=== PATIENT | female | born 2000 | race Two or more races ===

== ENCOUNTER 2024-10-31 11:31 | Inpatient (IN) | payer MEDICAID, SELFPAY ==
[2024-10-31] VITALS (75 sets, daily range): BP systolic 99–181; BP diastolic 58–128; PULSE 48–104; RESP 16–100; TEMP 36.8–37.5; O2SAT 91–100; BMI 30.8
[2024-10-31] MEDS: RINGERS LACTATED 1000 ML 1,000 ML 100 ML IV (12:18)
[2024-10-31 12:47] LABS: Basophils % (Auto) 0 % (0-2.5); Eosinophils # (Auto) 0.1 Thou/mm3 (0.0-0.5); Eosinophils % (Auto) 1 % (0-10); Hemoglobin 11.6 g/dL (12.0-16.0); Immature Granulocytes % (Auto) 1 % (0-0); Immature Granulocytes Auto 0.05 Thou/mm3 (0.00-0.00); Lymphocytes # (Auto) 1.9 Thou/mm3 (1.0-4.8); Lymphocytes % (Auto) 19 % (10-50); Mean Corpuscular HGB Conc 33.1 g/dl (31.0-37.0); Mean Corpuscular Hemoglobin 27.6 pg (25.0-35.0); Mean Corpuscular Volume 83 fL (80-100); Monocytes # (Auto) 0.7 Thou/mm3 (0.0-0.8); Monocytes % (Auto) 7 % (0-12); Neutrophils # (Auto) 7.2 Thou/mm3 (1.8-7.7); Neutrophils % (Auto) 72 % (37-80); Nucleated Red Blood Cell % 0 /100 WBC (0); Platelet Count 235 Thou/mm3 (140-440); RDW Standard Deviation 47.5 fL (36.4-46.3); Red Blood Count 4.21 Miln/mm3 (4.00-5.20); White Blood Count 9.9 Thou/mm3 (3.6-11.0)
[2024-10-31 13:40] LABS: Syphilis Nonreactive (Nonreactive)
[2024-10-31] MEDS: OXYTOCIN in NS 20 units 20 UNIT/1,000 ML BAG 125 UNIT IV (16:37)
[2024-10-31] MEDS: MISOPROSTOL 200 mCg TABLET 800 MCG PR (16:38)
[2024-10-31] MEDS: OXYTOCIN INJ 10 UNIT/ML VIAL IM (16:38)
--- NOTE | 2024-10-31 17:01 | PD.LDHP ---
Documentation for date of: 10/31/24 OB Labor/Induct. HPI History of Present Illness Chief complaint: labor : 3 Para: 1 Term pregnancies: 1 pregnancies: 1 Living children: 2 History of Abortions: Spontaneous and Elective: 0 History of Vaginal deliveries: 2 History of sections: No History of : No Date of last menstrual period: 01/29/24 JASMEET: 11/02/24 Gestational Age (weeks): 39 Gestational Age (days): 5 Gestational age based on last menstrual period: 39 History of present illness: 24-year-old 3 para 2 admit to labor and delivery with complaints of contractions since 10:00 in the morning. Last period was February 05, 2024. This gives a due date November 11, 2024. Patient has a history of irregular menses. Her first ultrasound was in February on the and patient was 6 weeks 5 and is changed due date November 02, 2024. Then patient had anatomy scan in June did also confirm dates. Denies social habits. Denies surgery. Eyes chronic illness. Patient had a abnormal 1 hour GTT but 3-hour was normal. Patient is O+, antibody screen negative, RPR nonreactive, rubella immune, hepatitis B negative, hep C negative, HIV negative, GC and Chlamydia were negative. She had negative NIPT and carrier screens were negative. GBS negative. Patient had negative drug screen. History of Present Dating criteria: LMP confirmed by 1st trimester US Adequate Care: Yes Ultrasounds: normal 1st trimester US and normal mid trimester US Obstetrical complications: none Medical complications: none Labs Labs: Negative: Hepatitis B, HIV, Chlamydia, Gonorrhea and Group Beta Strep Review of Systems Review of Systems Systems Reviewed: All systems reviewed, normal except as documented Past Medical History Surgical History SURGICAL: Negative Section Meds Home Medications and Allergies Home Medications ?Medication ?Instructions ?Recorded ?Confirmed ?Type vit no.95-ferrous 1 tab PO QDAY 10/31/24 10/31/24 History fumarate 28 mg-folic acid 800 mcg tablet () Allergies Allergy/AdvReac Type Severity Reaction Status Date / Time No Known Allergies Allergy Verified 10/31/24 12:07 OB Exam Physical Exam Vital signs: Temp Pulse Resp BP Pulse Ox 98.5 F 63 18 125/70 99 10/31/24 11:35 10/31/24 16:52 10/31/24 11:34 10/31/24 16:52 10/31/24 16:27 Narrative: Alert and oriented. Normal heart rate and rhythm. Lungs clear no wheezes. Gravid abdomen. Gynecoid pelvis. Estimated weight 7 and half pounds. Vaginal exam on admission was 80%, 4-5, -2. Vertex. Bag water intact. heart rate category 1 with accelerations and moderate variability and regular contractions Routine Cardiovascular Exam Cardiovascular: Present RRR Routine Abdominal Exam Abdominal: Present soft Detailed Labor and Delivery Exam Dilation (cm): 4-5 Effacement (%): 80 Cervix position: mid station: -2 Consistency: soft Presentation: Vertex Cervical ripeness score: 8 Membranes: intact Baseline heart rate: 115 monitor accelerations: 15x15 monitor decelerations: None director long term care variability: Moderate (11-25) Contraction frequency (min): 3-4 Contraction duration (sec): 40 Tachysystole: No Contraction intensity: Moderate OB Results Labs 10/31/24 11:48 Labs: Short CBC 10/31/24 Range/Units 11:48 WBC 9.9 (3.6-11.0) Thou/mm3 Hgb 11.6 L (12.0-16.0) g/dL Hct 35.0 L (36.0-46.0) % Plt Count 235 (140-440) Thou/mm3 OB Assessment & Plan Assessment and Plan (1) Normal labor and delivery: Status: Acute Additional Plan Induction method: none Plan: anticipate NVD and consult MD quezada
--- NOTE | 2024-10-31 17:14 | OBDSUM_ITS ---
Data (Rachel) Data Hx Section: No : 3 Para: 2 Term: 2 : 0 : 0 Delivery Data (Rachel) Labor Data Stimulated/Augmented: No Induction: No ROM Date: 10/31/24 ROM Time: 14:21 Rupture Type: SROM Amniotic Fluid: Clear Delivery Data EDC: 11/02/24 EDC calculated by:: LMP/early US confirmation Labor Onset Stage 1 Date: 10/31/24 Labor Onset Stage 1 Time: 09:30 Labor Onset Stage 2 Date: 10/31/24 Labor Onset Stage 2 Time: 16:22 Delivery Date: 10/31/24 Delivery Time: 16:32 Gestational age (weeks): 39 Gestational age (days): 5 Placenta Delivery Date: 10/31/24 Placenta Delivery Time: 16:37 Delivered by: Pennie Agustin Delivery nurse: Echo Sampson Bin Worker at delivery: No Support person(s) at delivery: FOB and grand mother Other staff at delivery: Nursery Nurse Other staff at delivery: Yessenia Garcia Delivery Method Delivery: Vaginal Delivery Type: Spontaneous Presentation: Vertex Position: OA Anesthesia Type Primary Anesthesia: Epidural Secondary Anesthesia: None Delivery Room Medications Other Intrapartum Medications: Yes Post Delivery Medications: Tocolytics and Cytotec Post Delivery Medications N/A: No Placenta Placenta Delivery: Spontaneous (placenta inspected, intact) Placenta Cultures Obtained: No Placenta Sent for Examination: No Cord Sample: Cord Blood Obtained Episiotomy Episiotomy: None Lacerations #1: Perineal: 1st degree (the skin, 1 stitch) Perineal repair Sutures used for repair: 3.0 Vicryl EBL Estimated blood loss (ml): 400 Umbilical Cord Umbilical Vessels: 3 Nuchal Cord: None Body Cord: None Data (Rachel) [place] Data Gender: Male Infant Weight Grams: 3600 1 Minute Total: 9 5 Minute Total: 9
[2024-10-31] MEDS: IBUPROFEN TAB 400 MG TABLET 800 MG PO (17:21)
[2024-10-31] MEDS: BENZO/LANO/ALOE (Dermoplast) 60 GM CAN 1 SPRAY TOP (17:28)
[2024-10-31] MEDS: TRANEXAMIC ACID 1,000 MG IVPB 1,000 MG/100 ML BAG 200 MG IV (17:30)
[2024-10-31 23:02] LABS: Basophils % (Auto) 0 % (0-2.5); Eosinophils # (Auto) 0.1 Thou/mm3 (0.0-0.5); Eosinophils % (Auto) 1 % (0-10); Hematocrit 32.6 % (36.0-46.0); Hemoglobin 11.5 g/dL (12.0-16.0); Immature Granulocytes % (Auto) 0 % (0-0); Immature Granulocytes Auto 0.05 Thou/mm3 (0.00-0.00); Lymphocytes % (Auto) 15 % (10-50); Mean Corpuscular HGB Conc 35.3 g/dl (31.0-37.0); Mean Corpuscular Volume 80 fL (80-100); Monocytes # (Auto) 1.3 Thou/mm3 (0.0-0.8); Monocytes % (Auto) 9 % (0-12); Neutrophils # (Auto) 10.5 Thou/mm3 (1.8-7.7); Neutrophils % (Auto) 75 % (37-80); Nucleated Red Blood Cell % 0 /100 WBC (0); Platelet Count 213 Thou/mm3 (140-440); RDW Standard Deviation 44.9 fL (36.4-46.3); White Blood Count 13.9 Thou/mm3 (3.6-11.0)
[2024-10-31] MEDS: ACETAMINOPHEN 325 MG TABLET 650 MG PO (23:32)
--- NOTE | 2024-11-01 03:08 | PD.LDPPPRG ---
Subjective Subjective Interval history: No complaints of pain. No dizziness. Bonding and breast-feeding Exam Vital Signs Temp Pulse Resp BP Pulse Ox O2 Del Method 99.1 F 64 16 114/78 98 Room Air 10/31/24 19:28 10/31/24 19:36 10/31/24 19:28 10/31/24 19:36 10/31/24 19:28 10/31/24 19:28 Narrative Exam Vital signs stable afebrile. Breasts are soft. Fundus firm below the umbilicus. Perineum is intact no lacerations minimal swelling. Small lochia. Uterus well involuted. Negative Homans' sign. 2+ DTR Objective Labs 10/31/24 22:41 Labs: Laboratory Results - last 24 hr 10/31/24 10/31/24 10/31/24 11:48 13:17 22:41 WBC 9.9 13.9 H D RBC 4.21 4.10 Hgb 11.6 L 11.5 L Hct 35.0 L 32.6 L MCV 83 80 MCH 27.6 28.0 MCHC 33.1 35.3 RDW Std Deviation 47.5 H 44.9 Plt Count 235 213 Neut % (Auto) 72 75 Lymph % (Auto) [address] [place] % (Auto) 7 9 Eos % (Auto) 1 1 Baso % (Auto) 0 0 Neut # (Auto) 7.2 10.5 H Lymph # (Auto) 1.[address] [place] # (Auto) 0.7 1.3 H Eos # (Auto) 0.1 0.1 Baso # (Auto) 0.0 0.0 Immature Gran # (Auto) 0.05 H 0.05 H Absolute Nucleated RBC 0.00 0.00 Immature Gran % 1 H 0 Nucleated RBC % 0 0 Syphilis Serology Nonreactive Blood Type O Positive Antibody Screen NEGATIVE Blood Bank Wristband ID Yes Assessment & Plan Problem List (1) Normal labor and delivery: Status: Acute Assessment Comment Assessment comment: 24 hr pp Plan Comment Plan Comment: Discharge home with baby today. Continue vitamins and iron. Tylenol or ibuprofen for pain. Discussed danger signs and symptoms. Discussed signs and symptoms of infection. Discussed ER precautions and parameters. Increase fluids and rest. Return in 3 weeks visit Time Spent With Patient Time: Total time spent is greater than 50% in coordination of care (as documented) at patient's floor/unit and/or counseling patient:
--- NOTE | 2024-11-01 03:10 | ESDS_ITS ---
DS: Providers Provider Date of admission: 10/31/24 11:44 Primary care physician: Regis Ibrahim MD Admitting Provider: Joshua Tucker MD Attending Provider on Admission: Pennie Agustin CNM Consults: 10/31/24 17:29 Referral Routine Comment: Attending Provider on DC: Pennie Agustin CNM Discharging Provider: Pennie Agustin CNM DS: Diagnosis Problem List Completed Was Problem List Reviewed/Reconciled?: Yes Summary/Hosp Course Brief History: 24-year-old 3 para 2 admit to labor and delivery with complaints of contractions since 10:00 in the morning. Last period was February 05, 2024. This gives a due date November 11, 2024. Patient has a history of irregular menses. Her first ultrasound was in February on the and patient was 6 weeks 5 and is changed due date November 02, 2024. Then patient had anatomy scan in June did also confirm dates. Denies social habits. Denies surgery. Eyes chronic illness. Patient had a abnormal 1 hour GTT but 3-hour was normal. Patient is O+, antibody screen negative, RPR nonreactive, rubella immune, hepatitis B negative, hep C negative, HIV negative, GC and Chlamydia were negative. She had negative NIPT and carrier screens were negative. GBS negative. Patient had negative drug screen. Peripartum Data Delivery Method: Normal Vaginal Delivery Episiotomy Description: None Laceration Description: yes (1st perineal) Time Spent with Patient Time attestation: Total time spent providing and/or coordinating discharge services: Exam Vital Signs Temp Pulse Resp BP Pulse Ox O2 Del Method 99.1 F 64 16 114/78 98 Room Air 10/31/24 19:28 10/31/24 19:36 10/31/24 19:28 10/31/24 19:36 10/31/24 19:28 10/31/24 19:28 Discharge Plan Plan Patient Disposition: HOME (Self Care) Patient condition on transfer: Stable Prescriptions/Referrals Prescriptions/Med Rec: No Action PNV cmb#95-ferrous fumarate-FA [] 28 mg iron- 800 mcg tablet 1 tab PO QDAY Patient Comments: TAKE 1 TABLET BY MOUTH ONCE DAILY Referrals: Regis Ibrahim MD [Primary Care Provider] - Patient/Caregiver Discharge Instructions Meds to Beds: No Discharge Activity: resume usual activities Print Language: Chinese Activity Restrictions/Additional Instructions: Discharge home with baby. Continue vitamins and iron. Tylenol or ibuprofen for pain. Discussed danger signs and symptoms. Discussed ER precautions and parameters. Discussed signs and symptoms of infection. Increa se fluids and rest. No sex. Return in 3 weeks visit Stand Alone Forms: Angelika Award Info., Patient Portal Info Letter Discharge Order Discharge Orders: Discharge (Routine); Ordered 11/01/24 Ordered By: Pennie Agustin Planned Discharge Date 11/01/24
[2024-11-01 03:32] VITALS: BP 104/56; PULSE 60; RESP 16; TEMP 37.1; O2SAT 96
[2024-11-01] MEDS: IBUPROFEN TAB 400 MG TABLET 800 MG PO (07:25)
[2024-11-01 07:30] VITALS: BP 103/56; PULSE 65; RESP 12; TEMP 36.6; O2SAT 96
[2024-11-01] MEDS: DOCUSATE SOD 100 MG CAPSULE PO (08:27)
[2024-11-01 16:30] VITALS: BP 117/76; PULSE 69; RESP 16; TEMP 36.8; O2SAT 98
== END 2024-11-01 17:34 | disposition home or self-care (01) | DRG 560 ==
LOC: S4SX 12:41 → S4NX 20:08
PROVIDERS: Admitting Provider Specialist; PCP Family Medicine; Visit Provider Advanced Practice Midwife
DX: O70.0 First degree perineal laceration during delivery (principal); Z37.0 Single live birth; Z3A.39 39 weeks gestation of pregnancy
CPT/HCPCS: 36415; 59409; 85025; 86780; 86850; 86900; 86901; 94762; J2590; J2795; J3490; J7120; S0191; A9270

== ENCOUNTER 2024-11-10 23:11 | Emergency (ER) | payer MEDICAID, SELFPAY ==
[2024-11-11] VITALS: BP 114/79; PULSE 78; RESP 18; TEMP 37.1; O2SAT 97; BMI 26.4
--- NOTE | 2024-11-11 00:17 | XR_ITS ---
Examination: Transvaginal ultrasound of the pelvis, complete Technique: Transvaginal sonographic images pelvis performed using vazquez scale imaging Exam date and time: November 11, 2024 0029 hrs. Indications: vaginal delivery October 31, 2024, bleeding persists Findings: Uterus 11.2 cm with heterogeneous thickened endometrium measuring up to 16 mm Right ovary 1.4 cm arterial flow Left ovary obscured by bowel gas Impression: Findings consistent with retained process of conception.
--- NOTE | 2024-11-11 02:20 | PRELIM_ITS ---
Pelvic ultrasound (transvaginal). November 11, 2024 0029 hours Clinical history: Blood clots s/p vaginal delivery 2 weeks ago Comparison: None Findings: The uterus is enlarged measuring 11.2 x 6.2 x 10.7 cm, consistent with status. The endometrium is heterogeneous and thickened, measuring 1.6 cm . There is heterogeneous material and fluid within the endometrial cavity. The right ovary measures 1.4 x 1.3 x 1 cm and is unremarkable. The right ovary demonstrates color flow and spectral waveforms on Doppler evaluation. The left ovary is obscured by bowel gas and is not evaluated on this examination. There is no adnexal mass. There is no free fluid on the submitted images. Impression: uterus. Heterogeneous and thickened endometrium, with heterogeneous material and fluid in the endometrial cavity likely represent blood clots rather than retained products of conception. Recommend clinical correlation and follow-up. Report Electronically Signed By: Loki Zendejas 11/11/2024 2:19:18 AM [EST]
--- NOTE | 2024-11-11 05:30 | PD.EDVAGBL ---
ED OB Contraction Preg RMI/HPI General Chief complaint: Vaginal Bleeding Stated complaint: Blood clots s/p PP 10/31 Time Seen by Provider: 11/11/24 00:16 Arrival date/time: 11/10/24 23:11 24F with history of vaginal delivery on 10/31 presents to ED with 1 day of vaginal bleeding w/ clots. Patient denies pain and states since delivery, bleeding had stopped until today. Patient states since onset, bleeding has been slowing down. Limitations: no limitations Related Data Home Medications ?Medication ?Instructions ?Recorded ?Confirmed vit no.95-ferrous 1 tab PO QDAY 10/31/24 10/31/24 fumarate 28 mg-folic acid 800 mcg tablet () Previous Rx's ?Medication ?Instructions ?Recorded docusate sodium 100 mg capsule 100 mg PO BID #60 caps 11/01/24 (Colace) ibuprofen 600 mg tablet 600 mg PO Q6H PRN pain #60 tabs 11/01/24 lanolin 50 % topical ointment 1 applic topical TID PRN skin 11/01/24 irritation #15 tubes Allergies Allergy/AdvReac Type Severity Reaction Status Date / Time No Known Allergies Allergy Verified 10/31/24 12:07 Review of Systems Review of Systems Systems Reviewed: All systems reviewed, normal except as documented Constitutional Constitutional: Reports system reviewed and no additional complaints, except as documented, Denies fever(s) and Denies headache(s) ENT Ears, Nose, Mouth, and Throat: Denies disequilibrium and Denies headache(s) Cardiovascular Cardiovascular: Reports system reviewed and no additional complaints, except as documented, Denies chest pain and Denies dyspnea Respiratory Respiratory: Reports system reviewed and no additional complaints, except as documented, Denies cough and Denies dyspnea Gastrointestinal Gastrointestinal: Reports system reviewed and no additional complaints, except as documented, Denies abdominal pain, Denies nausea and Denies vomiting Genitourinary Genitourinary: Reports as per HPI and Reports abnormal vaginal bleeding Neurologic Neurologic: Reports system reviewed and no additional complaints, except as documented, Denies confusion, Denies disequilibrium and Denies headache(s) Psychiatric Psychiatric: Denies confusion Past Medical History Past Medical History NEUROLOGIC: Negative Neurological Disorders CARDIAC: Negative Cardiac Disorders or Congestive Heart Failure RESPIRATORY: Negative Chronic Obstructive Pulmonary Disease (COPD) GASTROINTESTINAL: Negative Gastrointestinal Disorders GENITOURINARY: Negative Genitourinary Disorders or Renal Disease REPRODUCTIVE: Positive Previous Pregnancies; Negative Pelvic Inflammatory Disease MUSCULOSKELETAL: Negative Musculoskeletal Disorders ENDOCRINE: Negative Endocrine Disorders, Diabetes Mellitus Type 1 or Diabetes Mellitus Type 2 OTHER HISTORY: Positive Hospitalization (only for childbirth); Negative Autoimmune Disease, Blood Transfusions, Blood Transfusion Reaction, Anesthesia Reactions, Organ Transplant, MRSA, Clostridium Difficile or Cancer Family History FAMILY HISTORY: Negative Family Psychiatric Problems, Family Respiratory Disorders, Family Cardiac Disorders, Family Gastrointestinal Problems, Family Cancer, Family Surgery or Family Anesthesia Reaction Surgical History SURGICAL: Negative Cardiac Surgery, Endocrine Surgery, Ear Surgery, Abdominal Surgery, Nephrectomy, Joint Replacement, Neurologic Surgery, Lumpectomy, Section or Organ Transplant Social History SMOKING STATUS: Never smoker SECOND HAND EXPOSURE: No ED Exam General Limitations: Present no limitations General appearance: Present alert and in no apparent distress Head Head exam: Present atraumatic Eye Eye exam: Present normal appearance, PERRL and EOMI ENT ENT exam: Present normal exam, normal oropharynx and mucous membranes moist Neck Neck exam: Present normal inspection, full ROM and trachea midline Chest Chest inspection: Present normal inspection and symmetric chest wall rise Respiratory Respiratory exam: Present normal lung sounds bilaterally Cardiovascular Cardiovascular exam: Present regular rate, normal rhythm and normal heart sounds Abdominal Exam Abdominal exam: Present soft and normal bowel sounds Extremities Exam Extremities exam: Present normal inspection and full ROM Back Exam Back exam: Present normal inspection and full ROM Neurological Exam Neurological exam: Present alert, oriented X3 and CN II-XII intact Psychiatric Psychiatric exam: Present normal affect and normal mood Skin Skin exam: Present warm, dry, intact and normal color Course Quality Measures none Orders Category Date Time Status US transvaginal Stat Exams 11/11/24 00:17 Taken Vital Signs Vital signs: Vital Signs Temperature 98.8 F 11/11/24 00:00 Pulse Rate 78 11/11/24 00:00 Respiratory Rate 18 11/11/24 00:00 Blood Pressure 114/79 11/11/24 00:00 Pulse Oximetry (%) 97 11/11/24 00:00 Oxygen Delivery Method Room Air 11/11/24 00:00 O2 at 97% on RA and WNLs Vaginal Bleeding MDM Narrative MDM Narrative: 24F with history of vaginal delivery on 10/31 presents to ED with 1 day of vaginal bleeding w/ clots. Patient denies pain and states since delivery, bleeding had stopped until today. Patient states since onset, bleeding has been slowing down. Physical exam reveals well-appearing female. Patient is afebrile, calm, and alert. US reveals blood clots in uterus, but unlikely retained POC. Thrill Performer given. Patient states she can see OB in the next few days. Patient data External records reviewed:: [facility] previous records Clinical information provided by:: patient Social determinants that could affect healthcare access:: none Patient has the following chronic illnesses:: none How is presenting disease/condition affected by chronic disease/condition?: no chronic disease Evaluation data The following diagnostics were reviewed and interpreted by me:: radiology exam(s) Lab and/or radiology exams considered but not ordered:: ordered Interpretation Summary: above Medications / Prescriptions Medications or Prescriptions considered but not ordered:: not ordered Medication administrations:: n/a Consultations Consultation(s) initiated? (list below): No Diagnosis Vaginal Bleeding Differential Diagnosis: missed , threatened , dysfunctional uterine bleeding, menometrorrhagia, incomplete , ectopic without intrauterine , vaginal bleeding and other (PP bleeding) Most likely diagnosis given after review of the tests above:: PP bleeding Admission Indicated Admission indicated?: not indicated Admission Request Was there a request for admission?: No Disposition Plan Disposition Plan: Discharge Discharge Attestation Discharge Attestation: The patient and all family members were given an opportunity to ask questions and understood the discharge instructions. Discharge instructions specifically effects, indications for sooner follow up or return to the emergency department, and the expected course of current diagnosis. Patient condition: Stable Discharge Plan Plan Patient Disposition: HOME (Self Care) Disposition Comment: Stable Prescriptions/Referrals Prescriptions/Med Rec: No Action PNV cmb#95-ferrous fumarate-FA [] 28 mg iron- 800 mcg tablet 1 tab PO QDAY Patient Comments: TAKE 1 TABLET BY MOUTH ONCE DAILY docusate sodium [Colace] 100 mg capsule 100 mg PO BID Qty: 60 0RF lanolin 50 % ointment 1 applic topical TID PRN (Reason: skin irritation) Qty: 15 0RF ibuprofen 600 mg tablet 600 mg PO Q6H PRN (Reason: pain) Qty: 60 0RF Referrals: Regis Ibrahim MD [Primary Care Provider] - In 1 week Problem List Clinical Impression: bleeding Patient/Caregiver Discharge Instructions Education Materials: Hemorrhage Additional Instructions: Please follow-up with PCP within 24-48 hours and return immediately if symptoms worsen. Call OB office in morning to see if they can see you this week. Print Language: Monegasque Stand Alone Forms: Patient Portal Info Letter PA/VALVE MACHINE OPERATOR Supervising Physician PA/VALVE MACHINE OPERATOR Supervising Physician: Dr. Ozuna
== END 2024-11-11 02:48 | disposition home or self-care (01) ==
PROVIDERS: Emergency Provider Emergency Medicine; PCP Family Medicine
DX: O72.1 Other immediate postpartum hemorrhage (principal)
CPT/HCPCS: 76830; 99284